=== PATIENT | female | born 1950 | race Caucasian/White ===

== ENCOUNTER 2017-01-31 05:51 | Day surgery (SDC) | payer OTHER, MEDICARE ==
--- NOTE | 2017-01-30 17:10 | GHP ---
[f rep st] PREOP HISTORY AND PHYSICAL DATE OF ADMISSION: 01/31/2017 CHIEF COMPLAINT: Bilateral forefoot pain. HISTORY OF PRESENT ILLNESS: This is a 66-year-old, history of progressive bilateral forefoot pain. The pain is worsened with standing and walking. She has tried various activity and shoe wear modif ications without any significant improvement. PAST MEDICAL HISTORY: Positive for anxiety disorder. PAST SURGICAL HISTORY: Positive for bilateral breast implants, hysterectomy, tonsillectomy, total k nee arthroplasty. SOCIAL HISTORY: Negative for current tobacco use. MEDICATIONS: 1. Clonazepam. 2. Escitalopram. 3. Estropipate. 4. Meloxicam. 5. Omeprazole. 6. ProAir. 7. Ranitidine. 8. Restasis eyedrops. 9. Simvastatin. 10. Trazodone. ALLERGIES: She is allergic to penicillin. PHYSICAL EXAMINATION: GENERAL: The patient is alert and oriented x3. No acute distress. HEENT: Normocephalic. Pupils equal, round, reactive to light. Extraocular eye movements intact. NECK: S upple. No JVD. No lymphadenopathy. CHEST: Clear to auscultation. HEART: Regular rate and rhyth m. No murmurs or gallops. ABDOMEN: Soft, nontender, nondistended. No organomegaly. GENITAL, REC GADIEL AND BREAST EXAMS: Were deferred. EXTREMITIES: Exam reveals bony prominence along the dorsal a spect of bilateral first MTP joints with diminished range of motion. IMPRESSION: Bilateral hallux rigidus. PLAN: Based on persistence of symptoms, patient is interested in pursuing operative treatment. Fro m an operative standpoint, bilateral first MTP condylectomy debridements and implant hemiarthroplast y (Cartiva) was recommended. /[id number]/MODL
[2017-01-31] MEDS ORDERED: LIDOCAINE 1% 5 ML SDV ID PRN (06:25)
[2017-01-31] MEDS ORDERED: LR 1,000 ML IV ONE (06:25)
[2017-01-31] MEDS ORDERED: CLINDAMYCIN 600 MG/DEXTROSE 50 ML IV ONE (06:30)
[2017-01-31] MEDS ORDERED: BUPIVACAINE 0.5% 30 ML SDV ONE (06:51)
[2017-01-31] MEDS ORDERED: MIDAZOLAM 2 MG/2 ML VIAL ONE (07:03)
[2017-01-31] MEDS ORDERED: fentaNYL 100 MCG/2 ML INJ ONE (07:07)
[2017-01-31] MEDS ORDERED: PROPOFOL 200 MG/20 ML VIAL ONE ×2 (07:07→07:40)
[2017-01-31] MEDS ORDERED: DEXAMETHASONE 4 MG/ML VIAL ONE (07:13)
[2017-01-31] MEDS ORDERED: ONDANSETRON 4 MG/2 ML VIAL ONE (07:13)
[2017-01-31] MEDS ORDERED: epHEDrine SULFATE 10 MG/ML SYR ONE (07:41)
--- NOTE | 2017-01-31 12:23 | GOP ---
[f rep st] OPERATIVE REPORT DATE OF OPERATION: 01/31/2017 SURGEON: Mike Linn MD ANESTHESIA: General. PREOPERATIVE DIAGNOSIS: Bilateral hallux rigidus. POSTOPERATIVE DIAGNOSIS: Bilateral hallux rigidus. PROCEDURE PERFORMED: 1. Bilateral 1st metatarsophalangeal cheilectomy and debridement. 2. Bilateral 1st metatarsophalangeal implant hemiarthroplasty (Cartiva). 3. Intraoperative use of fluoroscopy. FINDINGS: ESTIMATED BLOOD LOSS: Negligible. INDICATIONS: The patient is a 66-year-old with a history of progressive bilateral medial forefoot p ain. Clinically and radiographically she was noted to have relatively advanced hallux rigidus. Bas ed on her persistence of pain and functional limitations despite appropriate course of nonoperative treatment, she is presenting for operative treatment. From an operative standpoint, options, includ ing arthrodesis and implant hemiarthroplasty, were discussed in detail with an anticipated risk and benefit of both operations well delineated. After a thorough discussion, the patient elected to pur lucas implant hemiarthroplasty. The patient acknowledged she understood the potential risks of the op eration, including, but not limited to, bleeding, infection, neurovascular damage leading to loss of limb or limb function, pain or functional limitations despite operative treatment, implant failure, and anesthetic risks. She acknowledged she understood the potential risks, planned procedure, and postoperative plan well, and had all questions answered prior to surgery. She gave consent for the operative procedure. DESCRIPTION OF PROCEDURE: Patient was brought in the operating room after IV antibiotics were admin istered. General anesthetic was administered by the anesthesiologist. Bilateral calf tourniquets w ere applied and bilateral lower legs were prepped and draped in standard sterile fashion. Attention was initially directed towards the right. After marking the incision and Tiburcio wrap exsanguination, tourniquet was inflated to 250. A longitudinal incision was made along the dorsal aspect of the 1st MTP joint. Sharp dissection was carried adjacent to the EHL tendon down to the capsule. Full-thic kness capsular flaps were reflected medially and laterally. Bony prominences along the dorsal, medi al and lateral aspects of the metatarsal head and 1st metatarsal were removed with a saw and rongeur . The templating revealed a 10 mm pretibia implant to be optimal. A guide pin for the implant was placed in the central aspect of the metatarsal head and position confirmed fluoroscopically. A 10 m m reamer was utilized to create a trough and the Cartiva implant was impacted into place with approx imately 2 mm being "proud." The toe was taken through a range of motion. Found no evidence of impi ngement. The plantar capsule was freed with an elevator. The capsule and extensor retinaculum were closed with 2-0 Vicryl suture in interrupted fashion, subcutaneous tissue closed with 3-0 Vicryl church ture in interrupted fashion, skin closed with 4-0 nylon running stitch. 0.5% Marcaine without epine phrine was injected in the wound sites. The tourniquet was deflated with no untoward bleeding seen. Attention was then directed towards the left foot. The left foot was addressed in identical fashion to the right with similar findings and identical size implant. The wounds were dressed with steril e Adaptic, 4 x 4, and Kerlix. The patient was taken to the recovery room, extubated, in stable cond ition postoperatively. All sponge, needle, and instrument counts were reported as being correct. DRAINS: None. COMPLICATIONS: None. PLAN: The patient will be discharged home weightbearing as tolerated in bilateral postop shoes. /[id number]/MODL
== END 2017-01-31 09:35 | disposition home or self-care (01) ==
LOC: FSGY 05:51
PROVIDERS: ATTEND Orthopaedic Surgery Foot and Ankle Surgery
PROC: 0SRM0JZ Replacement of Right Metatarsal-Phalangeal Joint with Synthetic Substitute, Open Approach (ICD-10-PCS; principal; 2017-01-31 07:15)
PROC: 0QBN0ZZ Excision of Right Metatarsal, Open Approach (ICD-10-PCS; principal; 2017-01-31 07:15)
PROC: 0SRN0JZ Replacement of Left Metatarsal-Phalangeal Joint with Synthetic Substitute, Open Approach (ICD-10-PCS; principal; 2017-01-31 07:15)
PROC: 0QBP0ZZ Excision of Left Metatarsal, Open Approach (ICD-10-PCS; principal; 2017-01-31 07:15)
DX: M20.21 Hallux rigidus, right foot (principal); M20.22 Hallux rigidus, left foot; F41.9 Anxiety disorder, unspecified; Z96.659 Presence of unspecified artificial knee joint; Z88.0 Allergy status to penicillin
CPT/HCPCS: J0690; J1100; J2250; J2405; J2704; J3010

== ENCOUNTER → 2018-11-01 | Outpatient (CLI) | payer OTHER, MEDICARE ==
[~2018-11-01] MED LIST: IOPAMIDOL (ISOVUE 370) 100 ML BTL IV ONE; LIDOCAINE 1% 300 MG/30 ML SDV ONE
== END ==
LOC: FIMAGING 09:39
PROVIDERS: ATTEND Orthopaedic Surgery
DX: M25.562 Pain in left knee (principal); M71.22 Synovial cyst of popliteal space [Baker], left knee
CPT/HCPCS: 73580; 73701; Q9967

== ENCOUNTER → 2019-02-16 | Outpatient (CLI) | payer OTHER, MEDICARE | LOC: FIMAGING 11:53 ==